=== PATIENT | male | born 1985 | race American Indian/Alaskan Native ===

== ENCOUNTER 2017-03-15 03:27 | Emergency (ER) | payer SELFPAY ==
--- NOTE | 2017-03-15 08:56 | Emergency Department Report ---
HPI - General Chief Complaint: Dental/Oral Time Seen by Provider: 03/15/17 08:37 - HPI HPI: Patient reported that he has been having right sided toothache to his right lower back to his since yesterday. He said pain is 10-10 and feels throbbing. He said he took Goody powder about 2 am and didn't help. Denies any difficulty swallowing or sore throat. Denies any drooling. Denies any fever or chills or nausea. Pain is worse with eating. Since that he does not have a dentist. ED Past Medical Hx - Past Medical History Previous Medical History?: No - Surgical History Past Surgical History?: No - Family History Family history: no significant - Social History Smoking Status: Current Some Day Smoker Substance Use Type: None - Medications Home Medications: Home Medications Medication Instructions Recorded Confirmed Last Taken Type Acetaminophen/Codeine [Tylenol 1 tab PO Q6H PRN #15 tab 03/15/17 Unknown Rx /Codeine # 3 tab] Ibuprofen [Motrin] 600 mg PO Q8H PRN #20 tablet 03/15/17 Unknown Rx Penicillin Vk [Veetids TAB] 2 tabcap PO TID #60 tablet 03/15/17 Unknown Rx ED Review of Systems ROS: Stated complaint: TOOTHACHE Other details as noted in HPI Comment: All other systems reviewed and negative Constitutional: denies: chills, fever Eyes: denies: eye pain, eye discharge ENT: dental pain. denies: ear pain, throat pain, hearing loss, congestion Respiratory: no symptoms reported Cardiovascular: denies: chest pain, palpitations, edema, syncope Musculoskeletal: denies: back pain, arthralgia Skin: denies: rash Neurological: denies: headache, weakness, numbness, paresthesias, abnormal gait , vertigo Physical Exam - Physical Exam Vital Signs: Vital Signs 03/15/17 06:58 Temperature 98.1 F Pulse Rate 65 Respiratory 18 Rate Blood Pressure 126/84 O2 Sat by Pulse 99 Oximetry General: This is a 32-year-old male well-nourished well-developed in no acute distress . Physical Exam: Head: Normocephalic, atraumatic. No abrasions, laceration or contusion Neck: Supple, No cervical adenopathy. Full range of motion. No C-spine tenderness. No muscular tenderness Eyes: Hermann sclera nonicteric, no conjunctival injection, bilateral pupils equal and reactive to light. Bilateral EOM intact. Ears: Bilateral TMs pearly cast, bilaterally EAC without any redness swelling or drainage. Nose: Hermann nasal mucosa without any erythema or congestion. No drainage. Mouth: Moist,No pharyngeal exudate and erythema. Uvula is midline and oral airways patent. Tongue normal. Positive gingival inflammation, multiple dental caries, No cellulitis or abscess noted .No erythema noted. No facial swelling. CV:S1, S2 regular rate and rhythm. Lungs: Clear to auscultate to lung monson. Normal work of breathing. Abdomen: Soft, normal bowel sounds in all quadrants. No rigidity or distention. Extremity: No clubbing, cyanosis or edema. +2 pulses in all extremities. No neurovascular compromise. Capillary refill is less than 3 seconds. Skin: Clean dry and intact, no rash or lesions. PSYCH: Normal mood and behavior ED Course Vital Signs 03/15/17 06:58 Temperature 98.1 F Pulse Rate 65 Respiratory 18 Rate Blood Pressure 126/84 O2 Sat by Pulse 99 Oximetry - Reevaluation(s) Reevaluation #1: 03/15/17 08:58 Stable throughout ED stay ED stay ED Medical Decision Making - Medical Decision Making ED course: Here complaining of toothache that started last night and he took Goody powder but it didn't relieve his pain. Patient physical findings for gingivitis, toothache and dental caries. He was given resources in community to follow-up with dentist to include [facility] and [facility]. Discussed the patient that I will place him on antibiotic and pain medication but he will need to follow up with dentist. Assessment/plan 1. Gingivitis 2. Dental caries, multiple 3. Toothache Disposition discharged home with prescription for penicillin VK, Motrin and Tylenol No. 3. He is to follow-up with dentist. Critical care attestation.: If time is entered above; I have spent that time in minutes in the direct care of this critically ill patient, excluding procedure time. ED Disposition Clinical Impression: Dental caries, Gingivitis, Toothache Disposition: - TO HOME OR SELFCARE Is pt being admited?: No Does the pt Need Aspirin: No Condition: Stable Instructions: Toothache (ED), Dental Caries (ED), Gingivitis (ED) Additional Instructions: Floss at least twice daily Take antibiotic as prescribed Please do not drive when Taking Tylenol #3 as this medication causes drowsiness Follow up with dentist as prescribed Prescriptions: Acetaminophen/Codeine [Tylenol /Codeine # 3 tab] 1 tab PO Q6H PRN #15 tab PRN Reason: Toothache Ibuprofen [Motrin] 600 mg PO Q8H PRN #20 tablet PRN Reason: Pain Penicillin Vk [Veetids TAB] 2 tabcap PO TID #60 tablet Referrals: [facility] [Outside] - 2-3 Days [facility] [Outside] - 2-3 Days Forms: Work/School Release Form(ED)
[2017-03-15] MEDS ORDERED: MOTRIN PO ONE (09:23)
[2017-03-15 09:30] VITALS: BP 118/90
== END 2017-03-15 09:32 | disposition home or self-care (01) ==
LOC: ED 03:27
DX: K05.10 Chronic gingivitis, plaque induced (principal); K02.9 Dental caries, unspecified; F17.210 Nicotine dependence, cigarettes, uncomplicated
CPT/HCPCS: 99282